=== PATIENT | male | born 1950 | race Caucasian/White ===

== ENCOUNTER 2019-01-21 14:50 | Inpatient (IN) | payer MEDICARE, OTHER ==
[~2019-01-21] VITALS: Ht 325.1 cm; Wt 70.8 kg
[~2019-01-21 14:50] MED LIST: ASPI-1158 PO; ATOR10TA69 PO; ENAL20TA PO; GABA600T PO; GLIP10TA10 PO; METF-416 PO; TRAZ-212 PO
[2019-01-21] MEDS ORDERED: ONDANSETRON HCL 4MG/2ML INJ IV STA (15:13)
[2019-01-21] MEDS ORDERED: SODIUM CHLORIDE 0.9% 1,000 ML IV ONE (15:13)
[2019-01-21] MEDS ORDERED: MORPHINE SULFATE 4 MG/ML CPJ (NOT FOR IM USE) IV STA (15:13)
[2019-01-21 15:45] LABS: CLARITY URINE CLEAR (CLEAR); COLOR URINE YELLOW (YELLOW); KETONES URINE TRACE (NEGATIVE); LEUKOCYTE ESTERASE URINE NEGATIVE (NEGATIVE); NITRITE URINE NEGATIVE (NEGATIVE); OCCULT BLOOD URINE 1+ (NEGATIVE); PROTEIN URINE NEGATIVE (NEGATIVE); SPECIFIC GRAVITY URINE 1.036 (1.005-1.030); UROBILINOGEN URINE 0.2 E.U./dL (0.2-1.0)
[2019-01-21 15:48] LABS: CHLORIDE 106 mEq/L (98-107)
[2019-01-21 15:49] LABS: PARTIAL THROMBOPLASTIN TIME 25.6 sec (23.4-31.0); PROTHROMBIN TIME 10.2 sec (9.6-11.0)
[2019-01-21 15:52] LABS: BASOPHILS % 0.9 % (0.0-2.0); EOSINOPHILS % 0.4 % (0.0-5.0); HEMATOCRIT. 42.6 % (42.0-52.0); HEMOGLOBIN. 14.4 g/dL (14.0-18.0); LYMPHOCYTES % 26.5 % (20.0-50.0); MEAN CORPUSCULAR HEMOGLOBIN 28.3 pg (28.0-32.0); MEAN CORPUSCULAR VOLUME 83.7 fL (80.0-94.0); MEAN PLATELET VOLUME 8.6 fl (7.4-10.4); NEUTROPHILS % 64.2 % (40.0-76.0); PLATELET 288 x1000/uL (130-400); RED BLOOD CELL COUNT 5.09 mill/uL (4.7-6.1); RED CELL DISTRIBUTION WIDTH 14.6 % (11.6-14.6)
[2019-01-21] MEDS ORDERED: DIATR MEGLU/DIATRIZOATE SOLN 120ML ONE (16:20)
[2019-01-21] MEDS ORDERED: FAMOTIDINE 20MG/2ML VIAL IV ONE (17:45)
[2019-01-21] MEDS ORDERED: GUAIFENESIN 200MG/10ML SUGAR FREE UDC PO PRN (21:00)
[2019-01-21] MEDS ORDERED: CLONIDINE 0.1MG TABLET PO PRN (21:00)
[2019-01-21] MEDS ORDERED: DIPHENHYDRAMINE 50MG/ML VIAL IV PRN (21:00)
[2019-01-21] MEDS ORDERED: ONDANSETRON HCL 4MG/2ML INJ IV PRN (21:00)
[2019-01-21] MEDS ORDERED: ACETAMINOPHEN 325MG TABLET PO PRN (21:00)
[2019-01-21] MEDS ORDERED: DOCUSATE SODIUM 100MG CAPSULE PO PRN (21:00)
[2019-01-21] MEDS ORDERED: MAGNESIUM/ALUMINUM HYDROXIDE/SIMETHICONE 30ML UDC PO PRN (21:00)
[2019-01-21 21:05] LABS: PHOSPHORUS 2.5 mg/dL (2.5-4.9)
[2019-01-21 22:30] VITALS: BP_SYST 136; BP_SYST 155; BP_DIAS 85; BP_DIAS 94
[2019-01-21] MEDS ORDERED: FLUC100T42 MT (23:34)
[2019-01-21] MEDS ORDERED: INSU100I22 SQ (23:34)
[2019-01-21] MEDS ORDERED: DAPA5TAB PO (23:34)
[2019-01-21] MEDS ORDERED: CYCL10TA7 PO (23:34)
[2019-01-22] VITALS: BP_SYST 128; BP_SYST 149; BP_DIAS 73; BP_DIAS 89
[2019-01-22] MEDS ORDERED: DEXTROSE 50% WATER 50ML SYRINGE IV PRN (00:45)
[2019-01-22 01:19] VITALS: BP 155/85
[2019-01-22 02:19] LABS: CREATINE KINASE 46 IU/L (39-308)
[2019-01-22 02:20] LABS: CREATINE KINASE MB FRACTION < 1.0 ng/mL (0.5-3.6)
[2019-01-22 04:00] VITALS: BP 144/86
[2019-01-22 06:39] LABS: BASOPHILS % 0.6 % (0.0-2.0); EOSINOPHILS % 0.7 % (0.0-5.0); HEMATOCRIT. 40.2 % (42.0-52.0); HEMOGLOBIN. 13.5 g/dL (14.0-18.0); LYMPHOCYTES % 24.5 % (20.0-50.0); MEAN CORPUSCULAR HEMOGLOBIN 27.9 pg (28.0-32.0); MEAN CORPUSCULAR VOLUME 83.1 fL (80.0-94.0); MEAN PLATELET VOLUME 8.2 fl (7.4-10.4); MONOCYTES % 9.7 % (2.0-8.0); NEUTROPHILS % 64.5 % (40.0-76.0); PLATELET 274 x1000/uL (130-400); RED BLOOD CELL COUNT 4.84 mill/uL (4.7-6.1); RED CELL DISTRIBUTION WIDTH 14.8 % (11.6-14.6)
[2019-01-22 07:12] LABS: CHLORIDE 107 mEq/L (98-107)
[2019-01-22 07:24] LABS: CREATINE KINASE 47 IU/L (39-308); LDL CHOLESTEROL 119 mg/dL (5-100)
[2019-01-22 07:25] LABS: HDL CHOLESTEROL 45 mg/dL (40-59)
[2019-01-22] MEDS: INSULIN LISPRO 100 UNITS/ML SUBCUT SCH ×4 (07:25→21:49)
[2019-01-22] MEDS: BLOOD SUGAR DIAGNOSTIC STRIP TEST SCH ×4 (07:25→21:00)
[2019-01-22 07:27] LABS: CREATINE KINASE MB FRACTION < 1.0 ng/mL (0.5-3.6)
[2019-01-22 08:00] VITALS: BP 135/74
[2019-01-22] MEDS: ENOXAPARIN 40MG/0.4ML SYR SUBCUT SCH (09:24)
[2019-01-22 12:00] VITALS: BP 132/79
[2019-01-22 20:00] VITALS: BP 158/88
[2019-01-22] MEDS ORDERED: GABAPENTIN 300MG CAPSULE PO PRN (21:45)
[2019-01-22] MEDS: ASPIRIN 81MG TABLET PO SCH (22:04)
[2019-01-23] VITALS: BP 129/82
[2019-01-23 04:00] VITALS: BP 132/84
[2019-01-23 06:08] LABS: BASOPHILS % 0.8 % (0.0-2.0); EOSINOPHILS % 0.9 % (0.0-5.0); HEMATOCRIT. 41.4 % (42.0-52.0); LYMPHOCYTES % 31.8 % (20.0-50.0); MEAN CORPUSCULAR HEMOGLOBIN 28.1 pg (28.0-32.0); MEAN CORPUSCULAR VOLUME 83.5 fL (80.0-94.0); MEAN PLATELET VOLUME 8.5 fl (7.4-10.4); MONOCYTES % 10.2 % (2.0-8.0); NEUTROPHILS % 56.3 % (40.0-76.0); PLATELET 306 x1000/uL (130-400); RED BLOOD CELL COUNT 4.96 mill/uL (4.7-6.1); RED CELL DISTRIBUTION WIDTH 14.6 % (11.6-14.6)
[2019-01-23] MEDS: BLOOD SUGAR DIAGNOSTIC STRIP TEST SCH ×2 (06:11→12:36)
[2019-01-23] MEDS: INSULIN LISPRO 100 UNITS/ML SUBCUT SCH ×2 (06:11→12:48)
[2019-01-23 06:45] LABS: CHLORIDE 107 mEq/L (98-107)
[2019-01-23 07:01] LABS: T4 FREE 1.07 ng/dL (0.76-1.46)
[2019-01-23 08:00] VITALS: BP 134/83
[2019-01-23] MEDS: ASPIRIN 81MG TABLET PO SCH (08:11)
[2019-01-23] MEDS: ENOXAPARIN 40MG/0.4ML SYR SUBCUT SCH (08:12)
[2019-01-23 12:00] VITALS: BP 143/88
[2019-01-23 13:17] VITALS: BP 143/80
[2019-01-23] MEDS ORDERED: TRAZODONE HCL 50MG TABLET PO SCH (21:00)
[2019-01-23] MEDS ORDERED: ATORVASTATIN CALCIUM 10MG TABLET PO SCH (21:00)
== END 2019-01-23 13:46 | disposition home or self-care (01) | DRG 392 ==
LOC: ER 14:50 → 6EST 17:30 → EDBEDREQ 17:37 → EDBEDREQTM 17:37 → EDBEDREQ 18:25 → ENRESERV 20:26
PROVIDERS: ADMIT Internal Medicine; ATTEND Internal Medicine
DX: A08.4 Viral intestinal infection, unspecified (principal); I11.0 Hypertensive heart disease with heart failure; I50.9 Heart failure, unspecified; E03.9 Hypothyroidism, unspecified; E11.42 Type 2 diabetes mellitus with diabetic polyneuropathy; E11.65 Type 2 diabetes mellitus with hyperglycemia; E78.5 Hyperlipidemia, unspecified; Z90.49 Acquired absence of other specified parts of digestive tract; Z79.84 Long term (current) use of oral hypoglycemic drugs; Z79.899 Other long term (current) drug therapy
CPT/HCPCS: 36415; 74176; 76705; 80048; 80061; 82550; 82553; 82962; 83036; 83735; 84100; 84439; 84443; 84481; 87015; 87045; 87427; 87449; 89055; 93970; 96361; 96374; 96375; 99285; J1650; J1815; J2270; J2405; J3490; J7030; Q9963